=== PATIENT | female | born 1985 | race Hispanic/Latino ===

== ENCOUNTER 2024-09-12 18:03 | Emergency (ER) | payer OTHER ==
[~2024-09-12] VITALS: Ht 160 cm; Wt 69.4 kg
[2024-09-12 18:06] VITALS: TEMP 98.4
[2024-09-12] MEDS: LIDOCAINE VISC 2% SOLN 15 ML UDC PO STA (18:51)
[2024-09-12] MEDS: DEXAMETHASONE SOD PHOS 10 MG/1 ML VIAL IM STA (18:51)
[2024-09-12 19:49] VITALS: PULSE 74; RESP 16; O2SAT 100
[2024-09-12] MEDS ORDERED: VENTOLIN HFA18 GM INH (20:07)
[2024-09-12] MEDS ORDERED: PREDNISONE20 MG PO (20:07)
[2024-09-12] MEDS ORDERED: AZITHROMYCIN250 MG PO (20:07)
[2024-09-12] MEDS ORDERED: GUAIFEN-CODEINE5 ML PO (20:08)
[2024-09-12 20:20] VITALS: TEMP 98.4
[2024-09-12] MEDS ORDERED: GUAIFENESIN-DM 15 M1 PO (20:42)
== END 2024-09-12 20:22 | disposition home or self-care (01) ==
LOC: ER 18:07
DX: R05.9 Cough, unspecified (principal); U07.1 COVID-19; J98.01 Acute bronchospasm; J02.9 Acute pharyngitis, unspecified
CPT/HCPCS: 99283; J1100